=== PATIENT | male | born 1970 | race Caucasian/White ===

== ENCOUNTER 2017-08-27 12:10 | Emergency (ER) | payer OTHER ==
[~2017-08-27] VITALS: Ht 190.5 cm; Wt 188.2 kg
[~2017-08-27 12:10] MED LIST: ASPIR 8181 MG PO; ASPIRIN325 PO; ATORVASTATIN CA40 MG PO; CELEBREX 200 M200 M1 PO; COREG6.25 MG PO; EFFIENT10 MG PO; ERYTHROMYCIN E3.5 G3 OPHTHALMIC; FLEXERIL PO; HYDROCODON-ACE1 EAC7 PO; HYDROCODONE-AP1 EAC6 PO; HYDROCODONE-APA1 TA1 PO; IBUPROFEN 800800 M1 PO; LISINOPRIL10 MG PO; MIRALAX17 G1 PO; NAPROSYN500 MG PO; NICOTINE TRANSD14 M1 TRANSDERM; NITROGLYCERIN0.4 MG SUBLING; NORCO 5-325 TA1 EACH PO; NORCO 7.5-3251 EACH PO; OXYCODONE HCL 55 MG PO; XARELTO10 MG PO; [UNRECOGNIZED DRUG - REMARK]
[2017-08-27] MEDS ORDERED: COREG6.25 MG PO (13:04)
[2017-08-27 16:08] VITALS: BP 121/75
== END 2017-08-27 17:04 | disposition home or self-care (01) ==
LOC: M.ERS 12:10
DX: S62.521B Displaced fracture of distal phalanx of right thumb, initial encounter for open fracture (principal); F17.210 Nicotine dependence, cigarettes, uncomplicated; I25.10 Atherosclerotic heart disease of native coronary artery without angina pectoris; Z95.5 Presence of coronary angioplasty implant and graft; W26.8XXA Contact with other sharp object(s), not elsewhere classified, initial encounter; Y93.89 Activity, other specified; Y92.89 Other specified places as the place of occurrence of the external cause; Y99.8 Other external cause status

== ENCOUNTER 2018-03-02 21:02 | Inpatient (IN) | payer OTHER ==
[~2018-03-02] VITALS: Ht 188 cm; Wt 196.9 kg
[2018-03-02 21:21] VITALS: BP 130/71
[2018-03-02 21:30] LABS: ABSOLUTE BASOPHILS 0.1 thou/uL (0.0-0.2); ABSOLUTE EOSINOPHILS 0.2 thou/uL (0.0-0.7); ABSOLUTE LYMPHOCYTES 2.3 thou/uL (0.8-5.3); ABSOLUTE MONOCYTES 0.7 thou/uL (0.0-1.2); ABSOLUTE NEUTROPHILS 5.5 thou/uL (1.6-8.1); BASOPHILS 1.4 %; EOSINOPHILS 1.7 %; HEMOGLOBIN 15.2 gm/dL (14.0-18.0); LYMPHOCYTES 26.6 %; MCH 32.2 pg (26.0-34.0); MCHC 33.7 g/dL (28.0-37.0); MCV 95.5 fL (80.0-100.0); MONOCYTES 7.7 %; MPV 7.7 fl. (7.2-11.1); NUCLEATED RBCS 0 /100WBC; PLATELET COUNT* 234 thou/uL (150-400); POLYS 62.6 %; RBC 4.72 mil/uL (4.50-6.00); RDW-CV 13.9 % (10.5-14.5); WBC 8.7 thou/uL (4.0-11.0)
[2018-03-02 21:39] LABS: ANION GAP 2 mmol/L (7-16); BUN 11 mg/dL (7-18); CALCIUM 8.2 mg/dL (8.5-10.1); CHLORIDE 102 mmol/L (98-107); CO2 33 mmol/L (21-32); CREATININE 0.9 mg/dL (0.6-1.3); GLUCOSE 118 mg/dL (70-99); POTASSIUM 4.3 mmol/L (3.5-5.1); SODIUM 137 mmol/L (136-145)
[2018-03-02 21:40] LABS: PROTIME 10.2 Seconds (9.20-11.50)
[2018-03-02 21:50] LABS: ALBUMIN 3.5 g/dL (3.4-5.0); ALKALINE PHOSPHATASE 108 U/L (46-116); LIPASE 78 U/L (73-393); MAGNESIUM 1.9 mg/dL (1.8-2.4); NT-PRO BRAIN NAT PEPTIDE 1034 pg/mL (<300); SGOT 14 U/L (15-37); SGPT 26 U/L (30-65); TOTAL BILIRUBIN 0.3 mg/dL (<0.1-1.0); TOTAL PROTEIN 7.4 g/dL (6.4-8.2); TROPONIN-I LEVEL <0.06 ng/mL (<0.06)
[2018-03-02 23:40] VITALS: BP 130/83
[2018-03-02 23:54] VITALS: BP 146/94
[2018-03-03 04:00] VITALS: BP 131/84
[2018-03-03 08:00] VITALS: BP 139/85
--- NOTE | 2018-03-03 08:16 | NUR ---
RECEIVED REPORT AND ASSUMED CARE AT 2350. PT TRANSFERRED FROM ED TO ROOM 227. VSS. CARDIAC MONITORING IN PLACE. PT REPORTED PAIN IN R SHOULDER, PREVIOUS TO CURRENT COMPLAINTS. REPORTED SAW HIS PCP THIS WEEK ABOUT IT AND IT IS ARTHRITIS, PT REC'D PAIN MEDICAITON PRIOR TO ARRIVING TO UNIT. ASSESSMENT/ ADMISSION COMPLETED CHARTED. DISCUSSED PLAN OF CARE WITH PT, VERBALIZED UNDERSTANDING. CARDIOLOGY CONSULTED, PT NPO AFTER MIDNIGHT. PT ON 2L NC, UP WITH ASSIST. HOURLY ROUDNING COMPLETED AND ALL NEEDS MET. NURSING WILL CONTINUE TO MONITOR
--- NOTE | 2018-03-03 10:46 | EKG ---
[place] [address] ELECTROCARDIOGRAM REPORT Name: SHANNON PEÑALOZA Room: [place] [address] ADM IN .R.#: [id number] Admission: 03/02/18 Attend Phys: Samaria Horton MD Discharge: Date of : 68 Report #: [id number] THIS REPORT FOR: //name// 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1970 Requested By: Joe Townsend Order Number: [id number] MD: Aleksander Arnett Measurements Intervals [place] Rate: 70 P: [place]: QRS: 73 QRSD: 122 T: 31 QT: 411 QTc: 444 Interpretive Statements Atrial fibrillation Nonspecific intraventricular conduction delay Compared to ECG 02/07/2015 08:41:32 Intraventricular conduction delay now present Sinus rhythm no longer present Electronically Signed On 03-03-2018 10:45:56 CDT by Aleksander Arnett [email or web address] <ELECTRONICALLY SIGNED> By: Aleksander Arnett MD, [facility] 03/03/18 1045 Aleksander Arnett MD, [facility] /EPI
[2018-03-03 11:59] VITALS: BP 121/76
--- NOTE | 2018-03-03 12:28 | NUR ---
MET WITH PT AND HIS MOTHER TO DISCUSS HOME SITUATION/DC PLANNING. PT LIVES WITH PARENTS. HE IS INDEPENDENT AND ACTIVE. USES NO EQUIPMENT OR HOME CARE. FOLLOWS WITH DR MONTEZ. PT DENIES DC NEEDS. EXPLAINED THAT HE WOULD NEED FREQUENT LABS (Q3D AT THIS TIME) DONE TO ADJUST HIS WARFARIN, HE STATED HE WOULD BE ABLE TO DRIVE TO HOSPITAL TO GET DONE. WILL NEED SCRIPT WRITTEN FOR LABS. WILL FOLLOW
--- NOTE | 2018-03-03 14:46 | 2DMMODE ---
[place] [address] 2 D/M-MODE ECHOCARDIOGRAM Name: SHANNON PEÑALOZA Room: [facility] IN [facility]#: [id number] Admission: 03/02/18 Attend Phys: Samaria Horton, Discharge: Date of : 68 Date of Service: 03/03/18 1446 Report #: [id number] THIS REPORT FOR: //name// APPROVED REPORT Study performed: 03/03/2018 10:19:08 EXAM: Comprehensive 2D, Doppler, and color-flow Echocardiogram Patient Location: In-Patient Room #: 227 Status: routine BSA: 3.04 HR: 92 bpm BP: 139/85 mmHg Rhythm: Atrial Fibrillation Other Information Study Quality: Technically Difficult Technically limited study due to poor endocardial definition, body habitus. Indications Atrial Fibrillation Echo Enhancing Agent Indication: Endocardial border delineation Agent(s) / Amount(s) Used: Optison 3 cc 2D Dimensions LVEF(%): 68.75 (>50%) IVSd: 15.37 (7-11mm) LVOT Diam: 23.77 (18-24mm) LVDd: 58.41 mm PWd: 12.84 (7-11mm) Ascending Ao: 41.67 (22-36mm) LVDs: 35.57 (25-40mm) Aortic Root: 41.02 mm Cassidy's LVEF: 68.75 % Volumes Left Atrial Volume (Systole) LA ESV Index: 33.20 mL/m2 Aortic Valve AoV Peak Oneil.: 1.69 m/s AO Peak Gr.: 11.38 mmHg LVOT Max P.21 mmHg AO Mean Gr.: 6.40 mmHg LVOT Mean P.60 [place] [address] 2 D/M-MODE ECHOCARDIOGRAM Name: SHANNON PEÑALOZA Room: [place] [address] ADM IN .R.#: [id number] Admission: 03/02/18 Attend Phys: Samaria Horton, Discharge: Date of : 68 Date of Service: 03/03/18 1446 Report #: [id number] LVOT Max V: 1.43 m/s AO V2 VTI: 30.34 cm LVOT Mean V: 1.00 m/s CLAUDIA (VTI): 3.84 cm2 LVOT V1 VTI: 26.24 cm Mitral Valve MV Decel. Time: 208.79 ms MV PHT: 60.55 ms MVA (PHT): 3.63 cm2 TDI Medial E' Oneil.: 0.17 m/s Lateral E' Oneil.: 0.14 m/s Pulmonary Valve PV Peak Oneil.: 1.08 m/s PV Peak Gr.: 4.63 mmHg Tricuspid Valve RAP Estimate: 5.00 mmHg TR Peak Gr.: 28.40 mmHg RVSP: 33.40 mmHg PA Pressure: 33.40 mmHg Left Ventricle The left ventricle is normal size. There is normal LV segmental wall motion. Mild concentric left ventricular hypertrophy. Left ventricular systolic function is normal. The left ventricular ejection fraction is within the normal range. LVEF is 55-60%. This study is not technically sufficient to allow evaluation of the LV diastolic function due to atrial fibrillation. Right Ventricle The right ventricle is normal size. The right ventricular systolic function is normal. Atria Left atrium is mildly dilated. The right atrium size is normal. Aortic Valve The aortic valve is normal in structure. No aortic regurgitation is present. There is no aortic valvular stenosis. Mitral Valve The mitral valve is normal in structure. There is no mitral valve regurgitation noted. No evidence of mitral valve stenosis[place] [address] 2 D/M-MODE ECHOCARDIOGRAM Name: SHANNON PEÑALOZA Room: [address] IN [facility]#: [id number] Admission: 03/02/18 Attend Phys: Samaria Horton, Discharge: Date of : 68 Date of Service: 03/03/18 1446 Report #: [id number] Tricuspid valve is not well visualized. Trace tricuspid regurgitation estimated pa pressure 38 mm Hg Pulmonic Valve Pulmonic valve is not well visualized. There is no pulmonic valvular regurgitation. Great Vessels Aortic root is mildly dilated. IVC is normal in size and collapses with >50% inspiration Pericardium There is no pericardial effusion. <Conclusion> LVEF is 55-60%. Mild concentric left ventricular hypertrophy. Left atrium is mildly dilated. <ELECTRONICALLY SIGNED> By: Aleksander Arnett MD, FACC 03/03/18 1446 1446 1446 Aleksander Arnett MD, FACC /INF
--- NOTE | 2018-03-03 15:49 | CON ---
[address] [address] CONSULTATION Name: SHANNON PEÑALOZA Amarilis Room: [address] IN M.R.#: [id number] Admission: 03/02/18 Attend Phys: Samaria Horton MD Discharge: Date of : 68 Report #: [id number] THIS REPORT FOR: //name// CC: Samaria Suresh MD DATE OF SERVICE: 03/03/2018 CARDIOLOGY CONSULTATION PRIMARY CARE PHYSICIAN: Dr. Valerio Suresh at [facility] in [facility]. HISTORY OF PRESENT ILLNESS: The patient is a 47-year-old single white male who I was asked to see in the hospital today after he was noted to be in atrial fibrillation. The patient initially presented here to [place] in 01/2015. At that time, he complained of chest pain. He saw my partner, Dr. Velez. He underwent cardiac catheterization by Dr. Velez from the right radial artery. However, because of his height, the left coronary artery could not be accessed. Therefore, the procedure was finished from the right femoral artery. The right coronary artery had a 95% distal stenosis. The circumflex gave off a marginal branch and had a 80% stenosis. The LAD had a 50% stenosis. Ejection fraction 50%. Dr. Floyd then placed a drug-eluting stent in the distal right coronary artery and a drug-eluting stent in the marginal branch of the circumflex. The patient tolerated the procedure well and he was last seen by Dr. Velez in the Cardiology Clinic in 02/2016, at which time, he was still on Effient. Unfortunately, he continues to smoke. He did have successful knee surgery in 2015. The patient has done fairly well since that time and denies any significant chest pain. However, he is not very active. He is also overweight, standing 6 feet 2 and weighing over 400 pounds. He continues to smoke, does have a chronic cough and edema. He denies any palpitations or syncope. The patient was doing well until yesterday, he woke up from a nap. He then felt lightheaded. [facility] went [facility] [employer] and was told he had an irregular heartbeat. His mother brought him here to [place]. He was noted to be in atrial fibrillation and he was admitted. He denied the heartbeat irregular or syncope. He has had no recent fever. PAST MEDICAL HISTORY: Otherwise, significant for hypertension and hyperlipidemia. MEDICATIONS: Consists of aspirin a day, carvedilol twice a day, lisinopril, hydrocodone for chronic shoulder pain. He ran out of his Lipitor. ALLERGIES: He has no known drug allergies. FAMILY HISTORY: [place] [address] CONSULTATION Name: SHANNON PEÑALOZA Room: 227-[address] [facility] IN .R.#: [id number] Admission: 03/02/18 Attend Phys: Samaria Horton MD Discharge: Date of : 68 Report #: [id number] SOCIAL HISTORY: . Lives with his mom in [place], [place]. He used to work at [employer], but was laid off. He smokes a pack of cigarettes a day. No alcohol or drug use. REVIEW OF SYSTEMS: He does snore at night. He has no history of peptic ulcer disease, liver disease. He has had kidney stones. No cancer. No psychiatric illness. No chronic skin condition. PHYSICAL EXAMINATION: GENERAL: Revealed a large middle-aged male who appeared in no distress. VITAL SIGNS: He had a blood pressure of 130/70, pulse is 80. He was afebrile. HEENT: He was anicteric. Conjunctivae pink. Mucous membranes are moist. NECK: Veins difficult to assess due to obesity. No carotid bruits. CHEST: No expiratory wheezes. CARDIAC: Irregular rhythm. No significant murmur. ABDOMEN: Obese. EXTREMITIES: He had trace edema of the ankles. Dorsalis pedis pulse could not be palpated. SKIN: Warm, dry. NEUROLOGIC: Nonfocal. PSYCHIATRIC: Mood appeared somewhat depressed. His ECG on admission showed atrial fibrillation with a controlled ventricular response rate. His workup so far, he had portable chest x-ray that showed cardiomegaly, otherwise clear lung liang. He had a CT scan of the head because of the headache without contrast that showed no acute abnormality. LABORATORY DATA: Sodium 137, creatinine 0.9, glucose 118. Liver function studies were normal. Troponin 0.06. BNP 1034. His white blood cell count 8.7, hemoglobin 15.2. IMPRESSION AND RECOMMENDATIONS: 1. Atrial fibrillation. Onset unclear. Rate noted to be slow. I would stop his beta gal. At this time, I will consider VIVIEN and cardioversion versus rate control and anticoagulation only. 2. Coronary artery disease. Previous stents. No recent angina. 3. Hypertension. The patient is on a beta gal and CLAY inhibitor. 4. Hyperlipidemia. The patient ran out of his statin drug. In the past, the patient was noted to have elevated triglycerides. 5. Tobacco abuse. 6. Chronic obstructive pulmonary disease. 7. [place] [address] CONSULTATION Name: SHANNON PEÑALOZA Room: [address] IN [facility].#: [id number] Admission: 03/02/18 Attend Phys: Samaria Horton MD Discharge: Date of : 68 Report #: [id number] 8. Snoring at night. I would consider sleep apnea. 9. History of kidney stones. <ELECTRONICALLY SIGNED> By: Aleksander Arnett MD, FACC 03/03/18 1549 0814 [id number] Arnett MD, FACC /nt
[2018-03-03 16:06] VITALS: BP 161/98
--- NOTE | 2018-03-03 18:39 | NUR ---
ASSESSMENT COMPLETED REFER TO COMPUTER CHARTING. 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 BED IN LOW AND LOCKED POSITION. CALL LIGHT WITHIN REACH. IV SALINE LOCKED. ON ROOM AIR. PATIENT REPORTING PAIN IN RIGHT SHOULDER THIS SHIFT. WILL CONTINUE TO MONITOR THIS SHIFT.
[2018-03-03 20:13] VITALS: BP 127/73
[2018-03-04] VITALS (7 sets, daily range): BP systolic 120–142; BP diastolic 72–92
[2018-03-04 05:43] LABS: ABSOLUTE EOSINOPHILS 0.1 thou/uL (0.0-0.7); ABSOLUTE MONOCYTES 0.5 thou/uL (0.0-1.2); ABSOLUTE NEUTROPHILS 5.7 thou/uL (1.6-8.1); BASOPHILS 0.4 %; EOSINOPHILS 1.7 %; HEMOGLOBIN 15.6 gm/dL (14.0-18.0); LYMPHOCYTES 23.5 %; MCH 31.8 pg (26.0-34.0); MCHC 33.2 g/dL (28.0-37.0); MCV 95.5 fL (80.0-100.0); MONOCYTES 6.3 %; MPV 8.4 fl. (7.2-11.1); NUCLEATED RBCS 0 /100WBC; PLATELET COUNT* 228 thou/uL (150-400); POLYS 68.1 %; RBC 4.92 mil/uL (4.50-6.00); RDW-CV 14.1 % (10.5-14.5); WBC 8.4 thou/uL (4.0-11.0)
[2018-03-04 05:56] LABS: ANION GAP 3 mmol/L (7-16); BUN 10 mg/dL (7-18); CALCIUM 8.8 mg/dL (8.5-10.1); CHLORIDE 101 mmol/L (98-107); CHOLESTEROL 173 mg/dL (<200); CO2 32 mmol/L (21-32); CREATININE 0.8 mg/dL (0.6-1.3); GLUCOSE 100 mg/dL (70-99); HDL CHOLESTEROL 25 mg/dL (>40); SODIUM 136 mmol/L (136-145); TC:HDL 6.9 Ratio (Not establshd); TRIGLYCERIDE 404 mg/dL (<150); VLDL 81 mg/dL (<40)
--- NOTE | 2018-03-04 06:36 | NUR ---
PT IS ABLE TO COMMUNICATE HIS NEEDS TO STAFF EFFECTIVELY. CURRENT PAIN MEDICATION REGIMEN HAS BEEN ADEQUATE FOR CONTROLLING HIS PAIN UP TO THIS TIME. PT HAS BEEN UP SELF IN HIS ROOM; STEADY AND NO DIZZINESS, UP TO THIS TIME. PT REQUESTING A TEMPORARY RELEASE, OR DISCHARGE, TO ATTEND A OF A FAMILY MEMBER LATER TODAY.
[2018-03-04 07:03] LABS: SERUM ASSESSMENT Clear
--- NOTE | 2018-03-04 08:19 | NUR ---
PT RESTING IN BED, APPERAS ALERT O X 4, DENIES CHEST PAIN, SOBM. C/O CHRONIC BILAT KNEE PAIN, A-FIB ON MONTITOR 90S
[2018-03-04] MEDS ORDERED: PROTONIX40 M1 PO (13:02)
[2018-03-04] MEDS ORDERED: AUGMENTIN 875-1 EACH PO (13:03)
[2018-03-04] MEDS ORDERED: VENTOLIN HFA INH8 GM INH (13:04)
[2018-03-04] MEDS ORDERED: PREDNISONE 10 M10 MG PO (13:11)
--- NOTE | 2018-03-04 13:39 | EKG ---
[place] [address] ELECTROCARDIOGRAM REPORT Name: ANABELASHANNON Olmos Room: [place] [address] ADM IN .R.#: [id number] Admission: 03/02/18 Attend Phys: Samaria Horton MD Discharge: Date of : 68 Report #: [id number] THIS REPORT FOR: //name// 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1970 Requested By: Aleksander Arnett Order Number: [id number] MD: Aleksander Arnett Measurements Intervals [place] Rate: 61 P: [place]: QRS: 58 QRSD: 112 T: 55 QT: 434 QTc: 438 Interpretive Statements Atrial fibrillation Borderline intraventricular conduction delay Low voltage, precordial leads Compared to ECG 03/02/2018 21:19:18 Low QRS voltage now present Electronically Signed On 03-04-2018 13:39:29 CDT by Aleksander Arnett [email or web address] <ELECTRONICALLY SIGNED> By: Aleksander Arnett MD, [facility] 03/04/18 1339 08 08 Aleksander Arnett MD, [facility] /EPI
== END 2018-03-04 14:45 | disposition home or self-care (01) | DRG 309 ==
LOC: M.ERS 21:02 → M.2W 22:25 → M.TBA-ER 22:25 → M.2W 23:46
PROVIDERS: Emergency Medicine Emergency Medical Services; Internal Medicine; Internal Medicine Cardiovascular Disease; ADMIT Internal Medicine
DX: I48.91 Unspecified atrial fibrillation (principal); G47.33 Obstructive sleep apnea (adult) (pediatric); G89.29 Other chronic pain; E66.01 Morbid (severe) obesity due to excess calories; F17.210 Nicotine dependence, cigarettes, uncomplicated; M19.90 Unspecified osteoarthritis, unspecified site; I10 Essential (primary) hypertension; E78.5 Hyperlipidemia, unspecified; J44.9 Chronic obstructive pulmonary disease, unspecified; I25.10 Atherosclerotic heart disease of native coronary artery without angina pectoris; Z96.652 Presence of left artificial knee joint; Z95.5 Presence of coronary angioplasty implant and graft; Z68.43 Body mass index [BMI] 50.0-59.9, adult; Z79.01 Long term (current) use of anticoagulants; Z79.82 Long term (current) use of aspirin; Z79.899 Other long term (current) drug therapy; Z87.442 Personal history of urinary calculi

== ENCOUNTER 2018-07-05 15:35 | Emergency (ER) | payer OTHER ==
[~2018-07-05] VITALS: Ht 190.5 cm; Wt 199.6 kg
[~2018-07-05 15:35] MED LIST changes: +AUGMENTIN 875-1 EACH PO; +PREDNISONE 10 M10 MG PO; +PROTONIX40 M1 PO; +VENTOLIN HFA INH8 GM INH
[2018-07-05] MEDS ORDERED: SENNA8.6 MG PO (15:53)
[2018-07-05] MEDS ORDERED: LAXATIVE FEMININ5 MG PO (15:54)
[2018-07-05] MEDS ORDERED: LOMAIRA8 MG PO (15:54)
[2018-07-05 17:44] LABS: ABSOLUTE MONOCYTES 0.6 thou/uL (0.0-1.2); MONOCYTES 4.9 %
[2018-07-05 17:46] LABS: ABSOLUTE BASOPHILS 0.1 thou/uL (0.0-0.2); ABSOLUTE EOSINOPHILS 0.2 thou/uL (0.0-0.7); ABSOLUTE LYMPHOCYTES 1.3 thou/uL (0.8-5.3); ABSOLUTE NEUTROPHILS 9.6 thou/uL (1.6-8.1); BASOPHILS 0.8 %; EOSINOPHILS 1.3 %; HEMATOCRIT 47.7 % (42.0-52.0); HEMOGLOBIN 15.9 gm/dL (14.0-18.0); LYMPHOCYTES 11.4 %; MCH 31.7 pg (26.0-34.0); MCHC 33.2 g/dL (28.0-37.0); MCV 95.3 fL (80.0-100.0); NUCLEATED RBCS 0 /100WBC; PLATELET COUNT* 244 thou/uL (150-400); POLYS 81.6 %; RDW-CV 14.3 % (10.5-14.5); WBC 11.8 thou/uL (4.0-11.0)
[2018-07-05 17:54] LABS: CALCIUM 9.2 mg/dL (8.5-10.1); CREATININE 0.9 mg/dL (0.6-1.3); POTASSIUM 4.3 mmol/L (3.5-5.1)
[2018-07-05 17:59] LABS: ALBUMIN 3.5 g/dL (3.4-5.0); TOTAL BILIRUBIN 0.6 mg/dL (<0.1-1.0); TOTAL PROTEIN 7.5 g/dL (6.4-8.2)
[2018-07-05] MEDS ORDERED: NORCO 5-325 TA1 EAC1 PO (19:30)
[2018-07-05] MEDS ORDERED: FLEXERIL PO (19:30)
[2018-07-05 19:41] VITALS: BP 129/84
--- NOTE | 2018-07-06 09:47 | EKG ---
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 07/06/18 0947 1615 14 Aleksander Arnett MD, FACC /EPI
== END 2018-07-05 20:27 | disposition home or self-care (01) ==
LOC: M.ERS 15:35
PROVIDERS: Nurse Practitioner
DX: M25.562 Pain in left knee (principal); M25.512 Pain in left shoulder; M25.511 Pain in right shoulder; F17.210 Nicotine dependence, cigarettes, uncomplicated; I48.91 Unspecified atrial fibrillation; I25.10 Atherosclerotic heart disease of native coronary artery without angina pectoris; E78.5 Hyperlipidemia, unspecified; Z96.652 Presence of left artificial knee joint; Z95.5 Presence of coronary angioplasty implant and graft; V49.49XA Driver injured in collision with other motor vehicles in traffic accident, initial encounter; Y93.89 Activity, other specified; Y92.89 Other specified places as the place of occurrence of the external cause; Y99.8 Other external cause status

== ENCOUNTER 2019-07-30 10:42 | Emergency (ER) | payer MEDICAID ==
[~2019-07-30] VITALS: Ht 190.5 cm; Wt 204.1 kg
[~2019-07-30 10:42] MED LIST changes: +LAXATIVE FEMININ5 MG PO; +LOMAIRA8 MG PO; +NORCO 5-325 TA1 EAC1 PO; +SENNA8.6 MG PO
[2019-07-30 10:54] VITALS: BP 170/109
[2019-07-30] MEDS ORDERED: NORCO 7.5-3251 EACH PO (11:09)
[2019-07-30] MEDS ORDERED: VENTOLIN HFA 1818 GM INH (11:09)
== END 2019-07-30 11:24 | disposition home or self-care (01) ==
LOC: M.ERS 10:42
DX: G89.29 Other chronic pain (principal); Z76.0 Encounter for issue of repeat prescription; I48.91 Unspecified atrial fibrillation; I25.10 Atherosclerotic heart disease of native coronary artery without angina pectoris; E78.5 Hyperlipidemia, unspecified; F17.210 Nicotine dependence, cigarettes, uncomplicated

== ENCOUNTER 2019-08-02 17:00 | Emergency (ER) | payer MEDICAID ==
[~2019-08-02] VITALS: Ht 190.5 cm; Wt 204.1 kg
[~2019-08-02 17:00] MED LIST changes: +VENTOLIN HFA 1818 GM INH
[2019-08-02] MEDS ORDERED: NORCO 7.5-3251 EACH PO (18:37)
[2019-08-02 18:57] VITALS: BP 165/105
== END 2019-08-02 18:58 | disposition home or self-care (01) ==
LOC: M.ERS 17:00
DX: G89.29 Other chronic pain (principal); Z76.0 Encounter for issue of repeat prescription; I48.91 Unspecified atrial fibrillation; E78.5 Hyperlipidemia, unspecified; I25.10 Atherosclerotic heart disease of native coronary artery without angina pectoris; F17.210 Nicotine dependence, cigarettes, uncomplicated

== ENCOUNTER 2020-03-20 14:59 | Emergency (ER) | payer MEDICAID ==
[~2020-03-20] VITALS: Ht 195.6 cm; Wt 194.1 kg
[2020-03-20] MEDS ORDERED: KEFLEX500 M1 PO (15:33)
[2020-03-20] MEDS ORDERED: CENTANY30 GM TOP (15:33)
[2020-03-20] MEDS ORDERED: NORCO 5-325 TA1 EAC2 PO (15:48)
[2020-03-20 15:50] VITALS: BP 160/90
== END 2020-03-20 15:54 | disposition home or self-care (01) ==
LOC: M.ERS 14:59
DX: S80.922A Unspecified superficial injury of left lower leg, initial encounter (principal); I25.10 Atherosclerotic heart disease of native coronary artery without angina pectoris; I48.91 Unspecified atrial fibrillation; E78.5 Hyperlipidemia, unspecified; F17.210 Nicotine dependence, cigarettes, uncomplicated; Z95.5 Presence of coronary angioplasty implant and graft; Z96.652 Presence of left artificial knee joint; X58.XXXA Exposure to other specified factors, initial encounter; Y93.89 Activity, other specified; Y92.89 Other specified places as the place of occurrence of the external cause; Y99.8 Other external cause status

== ENCOUNTER 2021-05-31 16:00 | Emergency (ER) | payer MEDICAID ==
[~2021-05-31] VITALS: Ht 190.5 cm; Wt 177.8 kg
[~2021-05-31 16:00] MED LIST changes: +CENTANY30 GM TOP; +KEFLEX500 M1 PO; +NORCO 5-325 TA1 EAC2 PO
[2021-05-31] MEDS ORDERED: ASA81BEC PO (16:17)
[2021-05-31] MEDS ORDERED: CYCLOBENZAPRINE15 M1 PO (16:17)
[2021-05-31] MEDS ORDERED: LIPITOR10 MG PO (16:18)
[2021-05-31] MEDS ORDERED: XARELTO10 M1 PO (16:19)
[2021-05-31] MEDS ORDERED: NITROSTAT0.4 M1 (16:21)
[2021-05-31] MEDS ORDERED: CEPHALEXIN500 MG PO (17:10)
[2021-05-31 17:41] VITALS: BP 139/77
== END 2021-05-31 17:42 | disposition home or self-care (01) ==
LOC: M.ERS 16:00
DX: S61.011A Laceration without foreign body of right thumb without damage to nail, initial encounter (principal); E78.5 Hyperlipidemia, unspecified; I48.91 Unspecified atrial fibrillation; F17.210 Nicotine dependence, cigarettes, uncomplicated; Z79.899 Other long term (current) drug therapy; W45.8XXA Other foreign body or object entering through skin, initial encounter; Y93.89 Activity, other specified; Y92.89 Other specified places as the place of occurrence of the external cause; Y99.8 Other external cause status